=== PATIENT | female | born 1950 | race American Indian/Alaskan Native ===

== ENCOUNTER 2018-10-08 07:38 | Outpatient (CLI) | payer MEDICARE, OTHER ==
--- NOTE | 2018-10-08 10:59 | Ultrasound Report ---
ULTRASOUND ABDOMEN LIMITED: TECHNIQUE: Transabdominal ultrasound with color Doppler interrogation. HISTORY: Diarrhea. COMPARISON: 01/30/08. FINDINGS: LIVER: Within normal limits. BILIARY SYSTEM: Normal. PANCREAS: Normal. RIGHT KIDNEY: The right kidney is borderline atrophic measuring 8.7 cm in length. There is mild increased renal cortical echotexture consistent with nonspecific renal parenchymal disease. No focal renal lesion or hydronephrosis. This is a new finding since the previous exam. PROXIMAL AORTA: Normal. ASCITES: None. IMPRESSION: Unremarkable exam. Nonspecific renal parenchymal disease. See above.
== END 2018-10-08 07:39 | disposition home or self-care (01) ==
LOC: US 07:38
PROVIDERS: ATTEND Internal Medicine Gastroenterology
DX: N18.9 Chronic kidney disease, unspecified (principal)
CPT/HCPCS: 76705